=== PATIENT | female | born 1940 | race Caucasian/White ===

== ENCOUNTER 2017-11-19 10:52 | Day surgery (SDC) | payer MEDICARE, OTHER ==
[~2017-11-19 10:52] MED LIST: Acetaminophen TAB* 325 MG PO PRN; Buffered Lidocaine 0.9% SYRIN* 5 ML/SYR SYRINGE INTRADERM ONE
[2017-11-19] MEDS ORDERED: Tropicamide 1% OPTH.SOL* BTL ONE (11:16)
[2017-11-19] MEDS ORDERED: Ketorolac 0.5% OPHTH (NF) 0.5 % 5 ML BTL ONE (11:16)
[2017-11-19] MEDS ORDERED: Lidocaine 1%* 5 ML VIAL ONE (11:16)
[2017-11-19] MEDS ORDERED: Povidone Iodine 5% OPTH* 30 ML BTL ONE (11:16)
[2017-11-19] MEDS ORDERED: Neomycin/Polymy/Dex OPHTH.OIN* 3.5 GM ONE (11:16)
[2017-11-19] MEDS ORDERED: Tetracaine 0.5% OPTH.SOL 4 ML* 1 DROP BTL ONE (11:16)
[2017-11-19] MEDS ORDERED: Phenylephrine 2.5% OPTH.SOL* 2 ML BTL ONE (11:16)
[2017-11-19] MEDS ORDERED: acetaZOLAMIDE TAB* 250 MG ONE (11:16)
[2017-11-19] MEDS ORDERED: Cyclopentolate 1% OPTH.SOL* 2 ML BTL ONE (11:16)
[2017-11-19] MEDS ORDERED: fentaNYL* 50 MCG/ML 2 ML VIAL (100 MCG VIAL) ONE (14:05)
[2017-11-19] MEDS ORDERED: Midazolam* 1 MG/ML 2 ML VIAL (2 MG) ONE (14:05)
[2017-11-19 15:22] VITALS: BP 158/69
--- NOTE | 2017-11-19 23:18 | OP ---
DATE OF OPERATION: 11/19/17 - [facility] DATE OF : 38 SURGEON: aSm Holden MD ANESTHESIA: Monitored anesthesia care. PRE-OP DIAGNOSIS: Cataract, right eye. POST-OP DIAGNOSIS: Cataract, right eye. OPERATIVE PROCEDURE: Extracapsular cataract extraction of the right eye with intraocular lens implant. IMPLANTS: SN60WF 21.5 diopter lens to the right eye. COMPLICATIONS: None. DESCRIPTION OF PROCEDURE: The patient was given phenylephrine 2.5 % and cyclopentolate 1% eye drops to the operative eye in the preoperative area. The patient was taken to the operating room where a time-out was taken to identify the correct patient, site, and side of surgery. The patient's right eye was prepped and draped in the usual sterile fashion with 5% Betadine. A second time- out was taken to verify the correct patient, side, and site of surgery, as well as the correct lens implant. A lid speculum was placed to the right eye. A 1mm paracentesis blade was used to make a clear corneal incision. Preservative-free 1% lidocaine was injected into the anterior chamber. DisCoVisc was then injected into the anterior chamber. A 2.75 mm keratome blade was used to make a triplanar incision. A cystotome initiated a capsulorrhexis, which was completed with Utrata forceps in a continuous and curvilinear manner. Hydrodissection of the lens was performed with BSS on a cannula. The lens could be spun in a capsular bag. The phacoemulsification handpiece was used with a divide-and- conquer technique to remove the nucleus. The I/A handpiece then removed the residual cortical lens material. DisCoVisc was injected to inflate the capsular bag. The planned SN60WF 21.5 diopter lens was injected into the capsular bag. The residual DisCoVisc was removed from the eye with the I/A handpiece. The corneal incisions were hydrated and no leaks occurred at physiologic pressure around 20 mmHg per palpation. The lid speculum was removed and drapes were removed. Maxitrol ointment was placed to the surface of the operative eye. An adhesive patch and shield was then placed on the operative eye. The patient was taken to the postoperative area in stable condition. [id number]/[facility] #: [id number] [facility]
== END 2017-11-19 15:23 | disposition home or self-care (01) ==
LOC: OREAST 10:52
PROVIDERS: ATTEND Student in an Organized Health Care Education/Training Program
DX: H25.11 Age-related nuclear cataract, right eye (principal); E03.9 Hypothyroidism, unspecified; E78.00 Pure hypercholesterolemia, unspecified; H52.229 Regular astigmatism, unspecified eye; D64.9 Anemia, unspecified; Z87.891 Personal history of nicotine dependence; K21.9 Gastro-esophageal reflux disease without esophagitis; Z85.51 Personal history of malignant neoplasm of bladder
CPT/HCPCS: A9270-GY; J2250; J3010; V2632

== ENCOUNTER 2017-11-26 07:33 | Day surgery (SDC) | payer MEDICARE, OTHER ==
[2017-11-26] MEDS ORDERED: fentaNYL* 50 MCG/ML 2 ML VIAL (100 MCG VIAL) ONE (07:37)
[2017-11-26] MEDS ORDERED: Midazolam* 1 MG/ML 2 ML VIAL (2 MG) ONE (07:37)
[2017-11-26 09:11] VITALS: BP 142/65
[2017-11-26] MEDS ORDERED: Tropicamide 1% OPTH.SOL* BTL ONE (12:52)
[2017-11-26] MEDS ORDERED: Neomycin/Polymy/Dex OPHTH.OIN* 3.5 GM ONE (12:52)
[2017-11-26] MEDS ORDERED: Lidocaine 1%* 5 ML VIAL ONE (12:52)
[2017-11-26] MEDS ORDERED: Ketorolac 0.5% OPHTH (NF) 0.5 % 5 ML BTL ONE (12:52)
[2017-11-26] MEDS ORDERED: Povidone Iodine 5% OPTH* 30 ML BTL ONE (12:52)
[2017-11-26] MEDS ORDERED: Tetracaine 0.5% OPTH.SOL 4 ML* 1 DROP BTL ONE (12:52)
[2017-11-26] MEDS ORDERED: Phenylephrine 2.5% OPTH.SOL* 2 ML BTL ONE (12:52)
[2017-11-26] MEDS ORDERED: Cyclopentolate 1% OPTH.SOL* 2 ML BTL ONE (12:52)
[2017-11-26] MEDS ORDERED: acetaZOLAMIDE TAB* 250 MG ONE (12:52)
--- NOTE | 2017-11-26 15:52 | OP ---
DATE OF OPERATION: 11/26/17 - [facility] DATE OF : 38 SURGEON: Sam Holden MD ANESTHESIA: Monitored anesthesia care. PREOPERATIVE DIAGNOSIS: Cataract, left eye. POSTOPERATIVE DIAGNOSIS: Cataract, left eye. OPERATIVE PROCEDURE: Extracapsular cataract extraction of the left eye with intraocular lens implant. IMPLANT: SN60WF 21.5 diopter lens to the left eye. COMPLICATIONS: None. DESCRIPTION OF PROCEDURE: The patient was given phenylephrine 2.5 % and cyclopentolate 1% eye drops to the operative eye in the preoperative area. The patient was taken to the operating room where a time-out was taken to identify the correct patient, site, and side of surgery. The patient's left eye was prepped and draped in the usual sterile fashion with 5% Betadine. A second time- out was taken to verify the correct patient, side, and site of surgery, as well as the correct lens implant. A lid speculum was placed to the left eye. A 1mm paracentesis blade was used to make a clear corneal incision. Preservative-free 1% lidocaine was injected into the anterior chamber. DisCoVisc was then injected into the anterior chamber. A 2.75 mm keratome blade was used to make a triplanar incision. A cystotome initiated a capsulorrhexis, which was completed with Utrata forceps in a continuous and curvilinear manner. Hydrodissection of the lens was performed with BSS on a cannula. The lens could be spun in a capsular bag. The phacoemulsification handpiece was used with a divide-and- conquer technique to remove the nucleus. The I/A handpiece then removed the residual cortical lens material. DisCoVisc was injected to inflate the capsular bag. The planned SN60WF 21.5 diopter lens was injected into the capsular bag. The residual DisCoVisc was removed from the eye with the I/A handpiece. The corneal incisions were hydrated and no leaks occurred at physiologic pressure around 20 mmHg per palpation. The lid speculum was removed and drapes were removed. Maxitrol ointment was placed to the surface of the operative eye. An adhesive patch and shield was then placed on the operative eye. The patient was taken to the postoperative area in stable condition. [id number]/[facility] [place] #: [id number] [facility]
== END 2017-11-26 09:15 | disposition home or self-care (01) ==
LOC: OREAST 07:33
PROVIDERS: ATTEND Student in an Organized Health Care Education/Training Program
DX: H25.12 Age-related nuclear cataract, left eye (principal); H52.229 Regular astigmatism, unspecified eye; Z87.891 Personal history of nicotine dependence; E03.9 Hypothyroidism, unspecified; E78.00 Pure hypercholesterolemia, unspecified; Z85.51 Personal history of malignant neoplasm of bladder
CPT/HCPCS: A9270-GY; J2250; J3010; V2632

== ENCOUNTER 2018-09-30 10:19 | Emergency (ER) | payer MEDICARE, OTHER ==
[2018-09-30 10:41] VITALS: BP 154/66
--- NOTE | 2018-09-30 11:12 | ED ---
Throat Pain/Nasal Congestion - HPI Summary HPI Summary: 78 yr old female with the complaint of right ear, right tongue and right throat pain. Onset of symptoms was over a week ago. She states she has had no change in hearing. She does wear hearing aid in her right ear because it hurts to put the hearing aid in over the past week She has seen nothing unusual looking at her tongue or throat. She denies URI symptoms. She has had no fever or chills. She denies change in vision, speech, hearing, swallowing, gait, denies focal weakness, denies numbness. - History of Current Complaint Chief Complaint: UCGeneralIllness Time Seen by Provider: 09/30/18 10:51 - Allergies/Home Medications Allergies/Adverse Reactions: Allergies Allergy/AdvReac Type Severity Reaction Status Date / Time meperidine [From Demerol] Allergy Vomiting Verified 09/30/18 10:41 Penicillins Allergy Hives Verified 09/30/18 10:41 contrast dye Allergy Intermediate Hives Uncoded 09/30/18 10:41 shrimp Allergy Intermediate Hives Uncoded 09/30/18 10:41 Home Medications: Home Medications Pitavastatin Calcium [Livalo] 4 mg PO DAILY 09/30/18 [History Confirmed 09/30/18 ] PMH/Surg Hx/FS Hx/Imm Hx Endocrine/Hematology History: Reports: Hx Blood Transfusions, Hx Thyroid Disease - HYPOTHYROIDISM - CONTROL WITH MEDICATIONS, Hx Anemia - vit b 12 q 3 weeks Cardiovascular History: Denies: Other Cardiovascular Problems/Disorders Respiratory History: Reports: Hx Seasonal Allergies Denies: Other Respiratory Problems/Disorders GI History: Reports: Hx Gall Bladder Disease, Hx Gastroesophageal Reflux Disease - MAY BE SIDE AFFECT ON THE CHEMO SHE HAD IN 1996 Denies: Other GI Disorders History: Reports: Other Problems/Disorders - Pt had bladder cancer and has a neobladder Musculoskeletal History: Reports: Hx Arthritis - LEFT THUMB, BACK, Hx Back Problems - low back pain with right leg pain, Hx Tendonitis - left thumb Sensory History: Reports: Hx Cataracts - natacha, Hx Contacts or Glasses - glasses, Hx Hearing Aid - natacha, Other Sensory Impairments Opthamlomology History: Reports: Hx Cataracts - natacha, Hx Contacts or Glasses - glasses, Other Sensory Impairments Neurological History: Denies: Other Neuro Impairments/Disorders Psychiatric History: Reports: Hx Depression - on meds - Cancer History Cancer Type, Location and Year: Bladder cancer Hx Chemotherapy: Yes - Surgical History Surgery Procedure, Year, and Place: 1996 BLADDER REMOVED, [facility]. 2004 RIGHT THUMB CARPOMETACARPAL ARTHROPLASTY,[facility]. 1997 INCISIONAL HERNIA REPAIR, [facility]. 1975 RIGHT RIB REMOVED, [facility]. gallbladder, 2015 Hx Anesthesia Reactions: No Infectious Disease History: Yes Infectious Disease History: Reports: Hx Shingles Denies: Traveled Outside the [place] in Last 30 Days - Family History Known Family History: Positive: None - Social History Alcohol Use: Rare Alcohol Amount: 1 per month Substance Use Type: Reports: None Smoking Status (MU): Former Smoker Type: Cigarettes Amount Used/How Often: 1-1 1/2 PPD 30 yrs Length of Time of Smoking/Using Tobacco: 25 Have You Smoked in the Last Year: No Review of Systems Constitutional: Negative Positive: Sore Throat, Ear Ache All Other Systems Reviewed And Are Negative: Yes Physical Exam Triage Information Reviewed: Yes Vital Signs On Initial Exam: Initial Vitals Temp Pulse Resp BP Pulse Ox 97.2 F 73 16 154/66 100 09/30/18 10:35 09/30/18 10:35 09/30/18 10:35 09/30/18 10:35 09/30/18 10:35 Vital Signs Reviewed: Yes Appearance: Positive: Well-Appearing, No Pain Distress Skin: Positive: Warm, Skin Color Reflects Adequate Perfusion Head/Face: Positive: Normal Head/Face Inspection Eyes: Positive: EOMI, KOURTNEY ENT: Positive: Normal ENT inspection, Pharynx normal, TMs normal, Other - The external canals are without erythema. There is no redness or exudate to the throat.. Negative: Nasal congestion, Nasal drainage, Sinus tenderness Neck: Positive: Supple, Nontender, No Lymphadenopathy Respiratory/Lung Sounds: Positive: Clear to Auscultation, Breath Sounds Present Cardiovascular: Positive: RRR. Negative: Murmur Abdomen Description: Negative: Distended Musculoskeletal: Positive: Strength/ROM Intact Neurological: Positive: Sensory/Motor Intact, Alert, Oriented to Person Place, Time, CN Intact II-III, Normal Gait, Speech Normal Psychiatric: Positive: Normal - [place] Coma Scale Best Eye Response: 4 - Spontaneous Best Motor Response: 6 - Obeys Commands Best Verbal Response: 5 - Oriented Coma Scale Total: 15 Diagnostics - Vital Signs Vital Signs Temp Pulse Resp BP Pulse Ox 09/30/18 10:35 97.2 F 73 16 154/66 100 - Laboratory Lab Statement: Any lab studies that have been ordered have been reviewed, and results considered in the medical decision making process. EENT Course/Dx - Course Course Of Treatment: 78 yr old with right ear, throat and tongue pain but without any findings. She is being referred to ENT for further evaluation to DR Fay and direction of a work up. - Diagnoses Provider Diagnoses: Ear ache, Hypertension Discharge - Sign-Out/Discharge Documenting (check all that apply): Patient Departure All imaging exams completed and their final reports reviewed: No Studies - Discharge Plan Condition: Good Disposition: HOME Patient Education Materials: Earache (ED), Hypertension (ED) Referrals: Faustino Fay MD [Medical Doctor] - 2 Days Gerardo Alfred MD [Primary Care Provider] - - Billing Disposition and Condition Condition: GOOD Disposition: Home
== END 2018-09-30 11:23 | disposition home or self-care (01) ==
LOC: UCCORT 10:19
DX: H92.01 Otalgia, right ear (principal); I10 Essential (primary) hypertension; Z88.0 Allergy status to penicillin; Z85.51 Personal history of malignant neoplasm of bladder; Z87.891 Personal history of nicotine dependence
CPT/HCPCS: 99211; G0463